=== PATIENT | female | born 1985 | race Caucasian/White ===

== ENCOUNTER 2020-01-19 09:58 | Emergency (ER) | payer OTHER, SELFPAY ==
--- NOTE | ~2020-01-19 | US_ITS ---
EXAMINATION: US venous doppler [facility] DATE: 01/19/2020 12:20 INDICATION: Shortness of breath. Lower limb pain. TECHNIQUE: Grayscale ultrasound images without and with compression and Doppler ultrasound images of the bilateral lower extremity veins were obtained. COMPARISON: None. FINDINGS: The visualized portions of right common femoral vein, profunda (deep) femoral vein, femoral vein, pop liteal vein, posterior tibial veins, peroneal veins, gastrocnemius vein and greater saphenous vein ou tflow are patent. The visualized portions of left common femoral vein, profunda femoral vein, femoral vein, popliteal v ein, posterior tibial veins, peroneal veins, gastrocnemius vein and greater saphenous vein outflow ar e patent. IMPRESSION: 1. No deep venous thrombosis in either lower limb. Reviewed, dictated and finalized at location B.
--- NOTE | ~2020-01-19 | CT_ITS ---
EXAMINATION: CTA chest PE protocol DATE: 01/19/2020 13:45 INDICATION: Shortness of breath. Lower limb pain. TECHNIQUE: Computed tomography (CT) pulmonary angiogram of the chest was performed with 100 mL Omnipa que-350 intravenous contrast. Additional 3D reconstructions utilizing coronal maximum intensity proje ction (MIP) were performed. Automated exposure control and iterative reconstruction technique were em ployed. The dose-length product was 166.57 mGy-cm. COMPARISON: None FINDINGS: Excellent contrast opacification of the pulmonary arteries. There is mild streak artifact from dense contrast in the superior vena cava and right atrium. Mild scattered respiratory motion artifact which decreases sensitivity in many of the smaller subsegmental pulmonary arteries in the lower lung zones . No pulmonary embolism. No pneumonia, pulmonary edema, pleural effusion or pneumothorax. Heart size is normal. No pericardial effusion. Thoracic aorta is normal in caliber with no dissection. No pathol ogically enlarged thoracic lymphadenopathy. Bilateral breast implants. Visualized upper abdomen is un remarkable. Mild thoracic spondylosis. IMPRESSION: 1. No pulmonary embolism or other acute cardiopulmonary disease. Reviewed, dictated and finalized at location B.
[2020-01-19 10:29] VITALS: BP 116/82; PULSE 97; RESP 16; TEMP 37; O2SAT 100
[2020-01-19 11:57] LABS: Basophils Percent Auto 0.6 % (0.2-1.2); Eosinophils Absolute Auto 0.2 K/mm3 (0-0.3); Eosinophils Percent Auto 3.3 % (0-4.4); Hemoglobin 12.5 g/dL (12.0-15.0); Immature Granulocyte Absolute 0.01 K/mm3 (0.00-0.031); Immature Granulocyte Percent A 0.2 % (0-0.5); Lymphocytes Absolute Auto 1.64 K/mm3 (0.9-3.2); Mean Corpuscular HGB Conc 32.9 g/dl (32-36); Mean Corpuscular Hemoglobin 28.9 pg (26-34); Monocytes Absolute Auto 0.4 K/mm3 (0.1-0.6); Monocytes Percent Auto 8.4 % (2.6-8.5); Neutrophils Absolute Auto 2.8 K/mm3 (1.3-6.7); Neutrophils Percent Auto 55.5 % (45.5-73.1); Platelet Count Result 192 k/mm3 (150-375); Red Blood Count 4.32 M/mm3 (4.2-5.4); Red Cell Distribution Width 14.2 % (11.5-14.5); White Blood Count 5.1 K/mm3 (4.5-10.0)
[2020-01-19 12:10] LABS: Anion Gap 6 mmol/L (8-16); Blood Urea Nitrogen 10 mg/dL (7-17); Calcium 8.9 mg/dL (8.4-10.2); Carbon Dioxide 29 mmol/L (22-30); Chloride 102 mmol/L (98-107); D Dimer 0.55 ug/mL (<0.48); Estimated CRCL calculation 106 ml/min; Estimated Glomerular Filt Rate > 60; Glucose 85 mg/dL (65-105); Potassium 4.2 mmol/L (3.4-5.0); Sodium 137 mmol/L (137-145)
--- NOTE | 2020-01-19 12:53 | ED.EXTPRO ---
HPI - Extremity Problem General Chief complaint: Extremity Problem,Nontraumatic <Rob Colmenares PA-C - Last Filed: 01/19/20 15:32> Stated complaint: numbness to feet <MULUGETA Palumbo Last Filed: 01/19/20 15:32> Time Seen by Provider: 01/19/20 11:24 <Rob Colmenares PA-C - Last Filed: 01/19/20 15:32> Source: patient <Rob Colmenares PA-C - Last Filed: 01/19/20 15:32> Mode of arrival: ambulatory <Rob Colmenares PA-C - Last Filed: 01/19/20 15:32> Limitations: no limitations <MULUGETA Palumbo Last Filed: 01/19/20 15:32> History of Present Illness HPI Narrative: Patient is a 34-year-old female who presents to emergency department for evaluation is in the room bilateral leg discomfort and shortness of breath patient notes she had surgery in the last month and then went on a long car ride over the weekend during the car ride developed some tingling in the bilateral upper legs. Patient with concern for DVT and possible pulmonary embolus. Patient denies similar occurrence in the past or other complaints patient denies sick contacts or URI symptoms and on arrival is in the room in no distress. <Rob Colmenares PA-C - Last Filed: 01/19/20 15:32> Related Data Home medications: Home Medications Medication Instructions Recorded Confirmed No Home Medications 01/19/20 01/19/20 <Rob Colmenares PA-C - Last Filed: 01/19/20 15:32> Allergies/Adverse reactions: Allergies Allergy/AdvReac Type Severity Reaction Status Date / Time No Known Allergies Allergy Verified 01/19/20 10:34 <MULUGETA Palumbo Last Filed: 01/19/20 15:32> PMFSH Social History Social History: Social History (Updated 01/19/20 @ 12:55 by Rob Colmenares PA-C) Smoking status: Never smoker Gender identity (if verbalized by the patient): Female <MULUGETA Palumbo Last Filed: 01/19/20 15:32> Exam Narrative: Exam Narrative: GENERAL: Well-appearing, well-nourished, and in no acute distress. HEAD: Normocephalic, atraumatic. EYES: PERRLA and EOMI. ENT: Nares clear, no rhinorrhea or epistaxis. Mucous membranes moist. CHEST: Clear to auscultation. No respiratory distress. No wheezes rales or rhonchi HEART: Regular rate and rhythm. No murmur heard. Normal peripheral pulses. ABDOMEN: Soft, nontender, nondistended, normal active bowel sounds. EXTREMITIES: Normal range of motion. No edema. SKIN: Warm, dry, no rash. NEURO: No focal deficits. Alert and oriented x3. Cranial nerves II through XII grossly intact. Neurovascularly intact PSYCH: Normal mood and affect. <MULUGETA Palumbo Last Filed: 01/19/20 15:32> Course Course Emergency Course: Patient in the room in no distress resting comfortably afebrile nontoxic-appearing aware of imaging findings and blood work <MULUGETA Palumbo Last Filed: 01/19/20 15:32> Vital Signs Vital signs: Vital Signs Temperature 37.0 C 01/19/20 10:29 Pulse Rate 97 01/19/20 10:29 Respiratory Rate 16 01/19/20 10:29 Blood Pressure 116/82 01/19/20 10:29 Pulse Oximetry 100 01/19/20 10:29 Temperature 37.0 C 01/19/20 10:29 Pulse Rate 97 01/19/20 10:29 Respiratory Rate 16 01/19/20 10:29 Blood Pressure 116/82 01/19/20 10:29 Pulse Oximetry 100 01/19/20 10:29 <MULUGETA Palumbo Last Filed: 01/19/20 15:32> Vital Signs Temperature 37.0 C 01/19/20 10:29 Pulse Rate 97 01/19/20 10:29 Respiratory Rate 16 01/19/20 10:29 Blood Pressure 116/82 01/19/20 10:29 Pulse Oximetry 100 01/19/20 10:29 Temperature 37.0 C 01/19/20 10:29 Pulse Rate 97 01/19/20 10:29 Respiratory Rate 16 01/19/20 10:29 Blood Pressure 116/82 01/19/20 10:29 Pulse Oximetry 100 01/19/20 10:29 <Franchesca Boyd MD - Last Filed: 01/19/20 15:40> MDM - Extremity (Nontraumatic) MDM Narrative Medical decision making narrative: Patient's imaging finding
== END 2020-01-19 14:13 | disposition home or self-care (01) ==
PROVIDERS: Emergency Medicine Emergency Medical Services; Emergency Provider Emergency Medicine
DX: R20.2 Paresthesia of skin (principal)
CPT/HCPCS: 36415; 71275; 80048; 81025; 85025; 85380; 93970; 99284; Q9967

== ENCOUNTER 2023-07-02 17:00 | Emergency (ER) | payer OTHER, SELFPAY ==
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
[2023-07-02 17:16] VITALS: BP 122/67; PULSE 86; RESP 20; TEMP 37.6; O2SAT 100
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
== END 2023-07-02 19:05 | disposition home or self-care (01) ==
PROVIDERS: Emergency Provider Registered Nurse
DX: S60.221A Contusion of right hand, initial encounter (principal); V43.52XA Car driver injured in collision with other type car in traffic accident, initial encounter; E03.9 Hypothyroidism, unspecified
CPT/HCPCS: 73130; 99203; G0463